=== PATIENT | female | born 1970 ===

== ENCOUNTER 2017-08-20 14:04 | Inpatient (IN) | payer OTHER ==
[~2017-08-20] VITALS: Ht 149.9 cm; Wt 56.2 kg
== END 2017-09-05 09:39 | DRG 743 ==
LOC: OB/GYN 09-02 05:56 → O/R 09-02 05:56 → SURG 09-02 07:00 → OB/GYN 09-02 15:42
PROVIDERS: Specialist; Urology
PROC: 0USG0ZZ Reposition Vagina, Open Approach (ICD-10-PCS; 2017-09-02)
PROC: 0US20ZZ Reposition Bilateral Ovaries, Open Approach (ICD-10-PCS; 2017-09-02)
PROC: 0T788DZ Dilation of Bilateral Ureters with Intraluminal Device, Via Natural or Artificial Opening Endoscopic (ICD-10-PCS; 2017-09-02)
PROC: 0UT90ZZ Resection of Uterus, Open Approach (ICD-10-PCS; principal; 2017-09-02 07:00)
PROC: 0UT70ZZ Resection of Bilateral Fallopian Tubes, Open Approach (ICD-10-PCS; 2017-09-02 07:00)
DX: D25.1 Intramural leiomyoma of uterus (principal); N72 Inflammatory disease of cervix uteri; N73.6 Female pelvic peritoneal adhesions (postinfective); N80.2 Endometriosis of fallopian tube; N80.0 Endometriosis of uterus; N93.8 Other specified abnormal uterine and vaginal bleeding

== ENCOUNTER 2019-01-15 05:56 | Day surgery (SDC) | payer OTHER | END 2019-01-15 13:50 | disposition home or self-care (01) | LOC: CIR.AMB 05:56 | DX: D27.0 Benign neoplasm of right ovary (principal); N73.6 Female pelvic peritoneal adhesions (postinfective) ==